=== PATIENT | male | born 1970 | race Caucasian/White ===

== ENCOUNTER 2020-05-10 04:35 | Emergency (ER) | payer MEDICAID ==
[~2020-05-10] VITALS: Ht 170.2 cm; Wt 82.0 kg
[2020-05-10] MEDS ORDERED: KETOROLAC 60MG/2ML VIAL IM ONE (05:15)
[2020-05-10 05:51] VITALS: BP 143/81
== END 2020-05-10 05:52 | disposition home or self-care (01) ==
LOC: ER 04:35
DX: F19.10 Other psychoactive substance abuse, uncomplicated (principal); Z76.5 Malingerer [conscious simulation]; F41.9 Anxiety disorder, unspecified; F20.9 Schizophrenia, unspecified; Z98.890 Other specified postprocedural states; Z88.0 Allergy status to penicillin
CPT/HCPCS: 99282